=== PATIENT | female | born 1980 | race Caucasian/White ===

== ENCOUNTER 2016-11-30 10:12 | Emergency (ER) | payer OTHER ==
[2016-11-30 10:40] VITALS: BP 124/71
--- NOTE | 2016-11-30 11:13 | UC ---
Skin Complaint HPI - HPI Summary HPI Summary: 36 w/ no PMH presents with rash for 3 weeks. She notice it starting on back. She says that it is little itchy and not painful. She has not tried anything on rash. She has dog and cats at home. She has not tried any new products or medication She is also complaining of cold like symptoms for a week. She admits to some sinus pressure, headache, sore throat, and post nasal drip. She denies any cough , abdominal pain, or n/v/d. She has not taken anything for this. - History of Current Complaint Chief Complaint: UCSkin Time Seen by Provider: 11/30/16 11:09 Stated Complaint: RASH Hx Last Menstrual Period: 11/10/16 - Allergy/Home Medications Allergies/Adverse Reactions: Allergies Allergy/AdvReac Type Severity Reaction Status Date / Time Penicillins Allergy Severe Rash Verified 11/30/16 10:40 Home Medications: Home Medications Omeprazole CAP* [Prilosec CAP* 20 MG] 11/30/16 [History] Review of Systems Constitutional: Negative Skin: Rash ENT: Sore Throat, Nasal Discharge Respiratory: Negative Cardiovascular: Negative All Other Systems Reviewed And Are Negative: Yes PMH/Surg Hx/FS Hx/Imm Hx Endocrine History Of: Denies: Diabetes, Thyroid Disease Cardiovascular History Of: Denies: Cardiac Disorders, Hypertension Respiratory History Of: Denies: COPD, Asthma GI/ History Of: Denies: Ulcer - Surgical History Surgical History: Yes Surgery Procedure, Year, and Place: right knee surgery - Family History Known Family History: Positive: Cardiac Disease - Social History Alcohol Use: None Substance Use Type: None Smoking Status (MU): Never Smoked Tobacco - Immunization History Most Recent Influenza Vaccination: 09/05/14 Most Recent Tetanus Shot: 02/03/14 Most Recent Pneumonia Vaccination: none Physical Exam Triage Information Reviewed: Yes Appearance: Well-Appearing Vital Signs: Initial Vital Signs Temp 98.5 F 11/30/16 10:34 Pulse 84 11/30/16 10:34 Resp 16 11/30/16 10:34 BP 124/71 11/30/16 10:34 Pulse Ox 100 11/30/16 10:34 Vital Signs Reviewed: Yes Eyes: Positive: Conjunctiva Clear ENT: Positive: Normal ENT inspection, Pharynx normal, Nasal drainage, TMs normal. Negative: Tonsillar swelling, Tonsillar exudate, Trismus, Muffled/ hoarse voice Neck: Positive: Supple, Nontender, No Lymphadenopathy Respiratory: Positive: Lungs clear, Normal breath sounds Cardiovascular: Positive: RRR Skin: Positive: Other - patches of scaling lesions located on abdomen and back Course/Dx - Course Course Of Treatment: 36 F presents with itchy patchy rash for 3 weeks on back that has spread to abdomen, states believes cat has worm, no new products, rash appears to be fungal with scalying presents with treat with topical antifungal medication. also c/o of cold like symptoms for a week: sinus pressure and sore throat, throat does not appear to be strept, no sinus tenderness on palpation, will have use saline rinses and flonase and if no improvement follow up with PCP for possible bacterial sinuisitis is symptoms, patient agrees with plan - Differential Diagnoses - Skin Complaint Differential Diagnoses: Cellulitis, Contact Dermatitis, Tinea, Other - sinusitis , influenza - Diagnoses Provider Diagnoses: tinea corporis. viral sinusitis Discharge - Discharge Plan Condition: Good Disposition: HOME Prescriptions: Clotrimazole 1% CREAM* [Clotrimazole 1%*] 1 applic TOPICAL BID #1 tube Fluticasone NASAL SPRAY 50MCG* [Flonase NASAL SPRAY 50MCG*] 2 spray BOTH NARES DAILY #1 btl Patient Education Materials: Tinea Corporis (ED), Sinusitis (ED) Referrals: Valery Mosquera NP [Primary Care Provider] - Additional Instructions: Apply topical cream twice a day until symptoms resolve Use saline spray in nose as much as needed Use humidifier in room or can use warm water in bowls Use intranasal steroid one spray each nostril twice a day Take Tylenol or ibuprofen for headache every 6 hours Follow up with primary in 5 days if no improvement Return to ED/UC if develop any new or worsening symptoms
== END 2016-11-30 11:40 | disposition home or self-care (01) ==
LOC: UCEAST 10:12
DX: B35.4 Tinea corporis (principal); J32.9 Chronic sinusitis, unspecified; Z88.0 Allergy status to penicillin
CPT/HCPCS: 99212; G0463